=== PATIENT | female | born 1960 | race African-American/Black ===

== ENCOUNTER → 2016-06-20 | Outpatient (CLI) | payer OTHER ==
--- NOTE | ~2016-06-20 | CR150 ---
[facility] A Service of [facility] & [facility] RADIOLOGY TEXT RESULTS PATIENT: QUETA GASPAR LOCATION: [facility] : 64 UNIT #: [id number] AGE: [address]: MALI MURILLO MD SEX: F ORDER DR: [id number] [facility] [address] [place], [place] [address] [id number] O MR#: [id number] Acc #: [id number] NAME: QUETA GASPAR : 1960 SEX: F STUDY DATE/TIME: 06/20/2016 9:55 UNIT: [facility] ROOM: STUDY DESCRIPTION: CR Hip Min 2 Views Lt Attending Physician: Mali Murillo M.D. Referring Physician: Mali Murillo M.D. Ordering Physician: Mali Murillo M.D. [facility] RE[facility] This report is preliminary unless electronic signature is present EXAM Left hip, 2 views, 06/20/2016. HISTORY Left hip pain and pelvic pain for 1 year with no known injury. FINDINGS AP and oblique examination of the hip shows adequate mineralization of the bones and a normal anatomic relationship of the femoral head with the acetabulum. There are no hypertrophic changes, fractures, dislocation, or joint capsular distension. No radiopaque foreign body is present about the soft tissues of the hip. IMPRESSION Normal hip. Dictated by... Andrea Rey M.D. THIS IS AN ELECTRONICALLY VERIFIED REPORT Andrea Rey M.D. at 06/22/2016 8:17 AM BRITNEY/joe TD: 06/20/2016 17:04 JOB #: [id number] MEDICAL IMAGING REPORT Page 1 of 1 COPY
== END | disposition home or self-care (01) ==
LOC: CRAD 09:45
DX: M25.551 Pain in right hip (principal)
CPT/HCPCS: 73502